=== PATIENT | female | born 1965 | race Caucasian/White ===

== ENCOUNTER 2020-06-13 08:30 | Outpatient (REF) | payer OTHER, SELFPAY ==
[2020-06-13 11:50] LABS: TSH reflex Free T4 3.08 mIU/mL (0.32-4.0)
== END 2020-06-13 08:31 | disposition home or self-care (01) ==
LOC: HO.HMGCLDS 08:30
PROVIDERS: PCP Internal Medicine; Visit Provider Internal Medicine
DX: E03.9 Hypothyroidism, unspecified (principal)
CPT/HCPCS: 84443

== ENCOUNTER 2021-09-01 14:10 | Outpatient (REF) | payer BC, SELFPAY ==
--- NOTE | ~2021-09-01 | MM_ITS ---
EXAMINATION: MM SCREENING DIGITAL BREAST TOMOSYNTHESIS, BILATERAL CLINICAL INFORMATION: Screening. Asymptomatic. The lifetime risk of breast cancer based on the Tyrer-Cuzick Model is 9%. COMPARISON: Mammography: 04/22/2017, 04/08/2015 TECHNIQUE: Digital breast tomosynthesis is performed in both the craniocaudal and mediolateral oblique views along with computer-aided detection (CAD). Synthesized 2D images are generated from the tomosynthesis. Additional left CC view is provided. FINDINGS: There are scattered areas of fibroglandular density (ACR BI-RADS breast composition Category b). There are no significant masses, abnormal calcifications, or other abnormalities. Parenchymal pattern is similar to prior studies. There is no developing density or architectural abnormality. Smooth oval nodular asymmetry retroareolar right breast stable. The axilla and skin contours are unremarkable. No significant changes. MM/MM tomosynthesis screening BI IMPRESSION: There are no significant changes from prior exams. ASSESSMENT: BI-RADS 2: Benign RECOMMENDATION: Routine annual mammography screening. This patient's information was entered into a reminder system with a target due date for their next mammogram.
== END 2021-09-01 14:11 | disposition home or self-care (01) ==
LOC: HO.MAMMO 14:10
PROVIDERS: PCP Internal Medicine; Visit Provider Internal Medicine
DX: Z12.31 Encounter for screening mammogram for malignant neoplasm of breast (principal)
CPT/HCPCS: 77063; 77067

== ENCOUNTER 2021-09-25 12:39 | Outpatient (REF) | payer BC, SELFPAY ==
[2021-09-25 12:51] VITALS: BMI 53.2
[2021-09-25 12:52] VITALS: BP 160/76; PULSE 69; RESP 16; TEMP 36.2; O2SAT 99
== END 2021-09-25 12:40 | disposition home or self-care (01) ==
LOC: HO.MS 12:39
PROVIDERS: PCP Internal Medicine; Visit Provider Ophthalmology
PROC: (CPT 67840; principal; 2021-09-25 13:40)
DX: D23.122 Other benign neoplasm of skin of left lower eyelid, including canthus (principal); D23.121 Other benign neoplasm of skin of left upper eyelid, including canthus; I10 Essential (primary) hypertension; J44.9 Chronic obstructive pulmonary disease, unspecified; E03.9 Hypothyroidism, unspecified; Z87.891 Personal history of nicotine dependence; Z79.51 Long term (current) use of inhaled steroids; Z79.899 Other long term (current) drug therapy
CPT/HCPCS: 67840 ×2; 88305

== ENCOUNTER 2022-03-15 07:34 | Outpatient (REF) | payer BC, SELFPAY ==
[2022-03-15 11:04] LABS: MANUAL DIFF FLAG NO
[2022-03-15 11:13] LABS: Appearance Urine CLOUDY; Basophils Percent Auto 0.4 % (0-2); Color Urine YELLOW; Eosinophils Absolute Auto 0.1 X10*3/uL (0.0-0.4); Eosinophils Percent Auto 1.6 % (0-4); Glucose Urine UA NEG (NEG); Hematocrit 37.6 % (37.0-47.0); Imm Gran Abs Auto 0.04 X10*3/uL (0.00-0.03); Imm Gran Pct Auto 0.5 % (0.0-0.4); Leukocyte Esterase Urine 2+ (NEG); Lymphocytes Absolute Auto 2.8 X10*3/uL (1.2-4.9); Lymphocytes Percent Auto 33.1 % (20-40); Mean Corpuscular HGB Conc 31.9 g/dl (31.0-35.0); Mean Corpuscular Volume 87.9 fL (80.0-98.0); Mean Platelet Volume 8.5 fL (9.4-12.3); Monocytes Absolute Auto 0.6 X10*3/uL (0.1-1.2); Monocytes Percent Auto 7.1 % (2-11); Neutrophils Absolute Auto 4.9 x10*3/uL (2.0-8.3); Neutrophils Percent Auto 57.3 % (45-73); Nitrite Urine POS (NEG); PH 5.5 (5.0-8.0); Platelet Count 251 X10*3/uL (160-400); Red Blood Count 4.28 X10*6/uL (4.20-5.50); Red Cell Distribution Width 14.5 % (11.0-16.0); Specific Gravity - Urine >= 1.030 (1.005-1.025); UACC Culture Trigger YES; Urine Blood 1+ (NEG); Urine Ketones NEG (NEG); Urine Protein NEG (NEG-TRACE); White Blood Count 8.5 X10*3/uL (4.8-10.8)
[2022-03-15 11:43] LABS: Bacteria Urine 4+ /LPF; Calcium Oxalate Crystals Urine 2+ /LPF; Squamous Epithelial Cell Urine 1+ /LPF; WBC Urine 50-75 /HPF (0-4)
[2022-03-15 12:01] LABS: TSH reflex Free T4 2.52 uIU/mL (0.32-4.0)
[2022-03-15 12:17] LABS: Alanine Aminotransferase 12 U/L (0-31); Albumin Level 3.9 g/dL (3.5-5.0); Alkaline Phosphatase 87 U/L (39-117); Anion Gap 11 (12-20); Aspartate Amino Transferase 10 U/L (5-31); Bilirubin Total 0.4 mg/dL (0.0-1.0); Blood Urea Nitrogen 14 mg/dL (9-16); Calcium 9.1 mg/dL (8.4-10.2); Carbon Dioxide 26 mmol/L (22-29); Chloride 106 mmol/L (96-108); Cholesterol 239 mg/dL; Estimated Glomerular Filt Rate > 60; Glucose Fasting 104 mg/dL (60-99); HDL Cholesterol 40 mg/dL; LDL Cholesterol Calculated 158 mg/dl; Potassium 4.3 mmol/L (3.3-5.1); Sodium 139 mmol/L (135-145); Total Protein 6.7 g/dL (6.5-8.0); Triglycerides 208 mg/dL
== END 2022-03-15 07:35 | disposition home or self-care (01) ==
LOC: HO.HMGCLDS 07:34
PROVIDERS: Visit Provider Internal Medicine
DX: Z00.01 Encounter for general adult medical examination with abnormal findings (principal); E03.9 Hypothyroidism, unspecified; E78.9 Disorder of lipoprotein metabolism, unspecified; F41.1 Generalized anxiety disorder; I10 Essential (primary) hypertension; J45.909 Unspecified asthma, uncomplicated; Z91.09 Other allergy status, other than to drugs and biological substances
CPT/HCPCS: 36415; 80053; 80061; 81001; 84443; 85025; 87086; 87088; 87186

== ENCOUNTER 2022-06-13 10:10 | Outpatient (REF) | payer BC, SELFPAY ==
[2022-06-13 11:44] LABS: Estimated Average Glucose 105 mg/dL; Hemoglobin A1c % 5.3 %
[2022-06-13 12:40] LABS: Alanine Aminotransferase 28 U/L (0-31); Albumin Level 4.2 g/dL (3.5-5.0); Alkaline Phosphatase 81 U/L (39-117); Anion Gap 16 (12-20); Aspartate Amino Transferase 19 U/L (5-31); Bilirubin Total 0.5 mg/dL (0.0-1.0); Blood Urea Nitrogen 10 mg/dL (9-16); Calcium 9.7 mg/dL (8.4-10.2); Carbon Dioxide 26 mmol/L (22-29); Chloride 104 mmol/L (96-108); Cholesterol 156 mg/dL; Estimated Glomerular Filt Rate > 60; Glucose Fasting 99 mg/dL (60-99); HDL Cholesterol 41 mg/dL; LDL Cholesterol Calculated 75 mg/dl; Potassium 4.7 mmol/L (3.3-5.1); Sodium 141 mmol/L (135-145); Total Protein 7.1 g/dL (6.5-8.0); Triglycerides 203 mg/dL
== END 2022-06-13 10:11 | disposition home or self-care (01) ==
LOC: HO.HMGCLDS 10:10
PROVIDERS: PCP Internal Medicine; Visit Provider Internal Medicine
DX: E66.01 Morbid (severe) obesity due to excess calories (principal); E78.9 Disorder of lipoprotein metabolism, unspecified; R73.01 Impaired fasting glucose; I10 Essential (primary) hypertension
CPT/HCPCS: 36415; 80053; 80061; 83036

== ENCOUNTER 2022-09-14 14:55 | Outpatient (REF) | payer BC, SELFPAY ==
--- NOTE | ~2022-09-14 | MM_ITS ---
EXAMINATION: MM SCREENING DIGITAL BREAST TOMOSYNTHESIS, BILATERAL CLINICAL INFORMATION: Screening. Asymptomatic. The lifetime risk of breast cancer based on the Tyrer-Cuzick Model is 8%. COMPARISON: Mammography: 09/01/2021, 04/22/2017, 04/08/2015 TECHNIQUE: Digital breast tomosynthesis is performed in both the craniocaudal and mediolateral oblique views along with computer-aided detection (CAD). Synthesized 2D images are generated from the tomosynthesis. FINDINGS: There are scattered areas of fibroglandular density (ACR BI-RADS breast composition Category b). There are no significant masses, abnormal calcifications, or other abnormalities. Parenchymal pattern is similar to prior studies. There is no developing density or architectural abnormality. Again, there is a stable chronic oval right retroareolar nodule. The axilla and skin contours are unremarkable. No significant changes. MM/MM tomosynthesis screening BI IMPRESSION: No mammographic evidence of malignancy. ASSESSMENT: BI-RADS 2: Benign RECOMMENDATION: Routine annual mammography screening. This patient's information was entered into a reminder system with a target due date for their next mammogram.
== END 2022-09-14 14:56 | disposition home or self-care (01) ==
LOC: HO.MAMMO 14:55
PROVIDERS: PCP Internal Medicine; Visit Provider Internal Medicine
DX: Z12.31 Encounter for screening mammogram for malignant neoplasm of breast (principal)
CPT/HCPCS: 77063; 77067

== ENCOUNTER 2022-12-04 13:29 | Outpatient (REF) | payer BC, SELFPAY ==
[2022-12-04 17:06] LABS: MANUAL DIFF FLAG NO
[2022-12-04 17:12] LABS: Basophils Absolute Auto 0.1 X10*3/uL (0.0-0.2); Basophils Percent Auto 0.5 % (0-2); Eosinophils Absolute Auto 0.1 X10*3/uL (0.0-0.4); Eosinophils Percent Auto 1.2 % (0-4); Hematocrit 41.4 % (37.0-47.0); Hemoglobin 13.3 g/dl (12.0-16.0); Imm Gran Abs Auto 0.04 X10*3/uL (0.00-0.03); Imm Gran Pct Auto 0.4 % (0.0-0.4); Lymphocytes Absolute Auto 2.6 X10*3/uL (1.2-4.9); Lymphocytes Percent Auto 26.2 % (20-40); Mean Corpuscular HGB Conc 32.1 g/dl (31.0-35.0); Mean Corpuscular Hemoglobin 28.4 pg (27.0-33.0); Mean Corpuscular Volume 88.3 fL (80.0-98.0); Mean Platelet Volume 8.5 fL (9.4-12.3); Monocytes Absolute Auto 0.7 X10*3/uL (0.1-1.2); Monocytes Percent Auto 6.6 % (2-11); Neutrophils Absolute Auto 6.5 x10*3/uL (2.0-8.3); Neutrophils Percent Auto 65.1 % (45-73); Platelet Count 303 X10*3/uL (160-400); Red Blood Count 4.69 X10*6/uL (4.20-5.50); Red Cell Distribution Width 13.9 % (11.0-16.0)
[2022-12-04 17:30] LABS: Alanine Aminotransferase 13 U/L (0-31); Albumin Level 4.2 g/dL (3.5-5.0); Alkaline Phosphatase 109 U/L (39-117); Anion Gap 12 (12-20); Aspartate Amino Transferase 10 U/L (5-31); Bilirubin Total 0.6 mg/dL (0.0-1.0); Blood Urea Nitrogen 14 mg/dL (9-16); Calcium 9.6 mg/dL (8.4-10.2); Carbon Dioxide 27 mmol/L (22-29); Chloride 105 mmol/L (96-108); Estimated Glomerular Filt Rate 60; Glucose Random 75 mg/dL (60-115); Sodium 139 mmol/L (135-145); Total Protein 7.1 g/dL (6.5-8.0)
[2022-12-04 17:46] LABS: TSH reflex Free T4 5.29 uIU/mL (0.32-4.0)
[2022-12-04 18:19] LABS: Free T4 (Free Thyroxine) 0.99 ng/dL (0.71-1.85)
[2022-12-05 05:25] LABS: Estimated Average Glucose 108 mg/dL; Hemoglobin A1c % 5.4 %
[2022-12-06 02:53] LABS: LDL Cholesterol Direct 95 mg/dL (<100)
== END 2022-12-04 13:30 | disposition home or self-care (01) ==
LOC: HO.HMGCLDS 13:29
PROVIDERS: PCP Internal Medicine; Visit Provider Internal Medicine
DX: E03.9 Hypothyroidism, unspecified (principal); E66.01 Morbid (severe) obesity due to excess calories; E78.9 Disorder of lipoprotein metabolism, unspecified; F41.1 Generalized anxiety disorder; I10 Essential (primary) hypertension; J45.40 Moderate persistent asthma, uncomplicated; R73.01 Impaired fasting glucose; Z91.09 Other allergy status, other than to drugs and biological substances
CPT/HCPCS: 36415; 80053; 83036; 83721; 84439; 84443; 85025

== ENCOUNTER 2023-09-20 15:03 | Outpatient (REF) | payer BC, SELFPAY | END 2023-09-20 15:04 | disposition home or self-care (01) | LOC: HO.MAMMO 15:03 | PROVIDERS: PCP Registered Nurse; Visit Provider Internal Medicine | DX: Z12.31 Encounter for screening mammogram for malignant neoplasm of breast (principal) | CPT/HCPCS: 77063; 77067 ==

== ENCOUNTER → 2023-09-20 15:15 | Outpatient (BNV) | payer BC, SELFPAY | PROVIDERS: PCP Registered Nurse; Visit Provider Radiology Diagnostic Radiology | DX: Z12.31 Encounter for screening mammogram for malignant neoplasm of breast (principal) | CPT/HCPCS: 77063; 77067 ==

== ENCOUNTER 2024-10-14 15:37 | Outpatient (REF) | payer BC, SELFPAY ==
--- OUTSIDE RECORDS SUMMARY | 2024-10-14 15:40 | XMS_ITS ---
Author Organization [facility], [facility] Address [address], [place] [id number] Care Team Providers Care Surgical Coder Name Role Phone BETSY LAWANDA Primary Care Provider ALLERGIES Allergen (clinical drug ingredient) Drug/Non Drug Allergy documented on EMR Reaction Allergy Type Onset Date Status Seasonal (uncoded) Sinus/cold symptoms Allergy Active Bee Sting anaphylaxis Allergy Active clindamycin Clindamycin Increased cardia c enzymes Drug Allergy Active Iodine anaphylaxis Drug Allergy Activ e Penicillin rash Drug Allergy Active Shellfish (FN) Shellfish-derived Products anaphylaxis Drug Allergy Active REASON FOR REFERRAL Reason Please refer to [facility] for nutrition counseling Diagnosis 1 Controlled type 2 di abetes mellitus without complication, without long-term current use of insulin (E11.9) [facility] Referring Provider First Name LAWANDA Referring Provider Last Name BETSY Referring Provider Speciality Nurse Prac titioner Referred Organization [facility], [facility] Referred Address [address], [id number], Referred Provider Specialty Nutrition General Notes PHILLIP JIMENEZAIL 0 11/06/2023 11:37:51 AM >demographics, referral and office note faxed to [facility] [phone] Referral Priority Routine REASON FOR VISIT F/U WEIGHT MEDICATIONS Medication SIG (Take, Route, Frequency, Duration) Notes Start Date End Date Status Symbicort 160-4.5 MCG/ACT 2 puffs Inhalation Twice a day 03/28/2023 Not-Taking Gabapentin 300 MG 1 capsule Orally Three times a day Not-Taking Montelukast Sodium 10 MG 1 tablet Orally Once a day for 30 days 03/28/2023 Not-Taking Levothyroxine Sodium 150 MCG TAKE ONE TABLET BY MOUTH EVERY MORNING ON AN EMPTY STOMACH for 90 Active Mounjaro 2.5 MG/0.5ML 2.5 mg Subcutaneou s once a week for 30 days 03/28/2023 Not-Taking ALPRAZolam 1 MG TAKE ONE TABLET BY MOUTH TWICE A DAY (SPARINGLY) for 15 08/22/2023 Active Breo Ellipta 100-25 MCG/ACT INHALE ONE PUFF INTO THE LUNGS ONCE A DAY for 90 Active Ondansetron HCl 4 MG TAKE ONE TABLET BY MOUTH EVERY DAY NEEDED for 30 Active Diclofenac Sodium 1 % as directed Externally Applies 4g up to 4x/d PRN Active Albuterol Sulfate HFA 108 (90 Base) MCG/ACT 1 puff as needed Inhalation every 4 hrs for 90 days 02/01/2023 Active Lidocaine 5 % 1 patch remove after 12 hours Externally Once a day for 90 days Active Cyclobenzaprine HCl 5 MG 1 tablet every 8 hrs Orally as needed Active Lisinopril 5 MG 1 tablet Orally Once a day Active buPROPion HCl ER (XL) 300 MG 1 tablet in the morning Orally Once a day for 90 days 01/31/2023 Active Citalopram Hydrobromide 40 MG 1 tablet Orally Once a day for 90 days Active Mounjaro 5 MG/0.5ML 5 mg/0.5mL Subcutaneous once per week 06/13/2023 Active Atorvastatin Calcium 80 MG 1 tablet Orally Once a day for 90 days 01/31/2023 Active Albuterol Sulfate 108 (90 Base) MCG/ACT 1 puff as needed Inhalation every 4 hrs for 90 days Active SOCIAL HISTORY Tobacco Use: Social History Observation Description Date Details (start date - stop date) Former Smoker NA - NA Sex Assigned At : Social History Observation Description Sex Assigned At Unknown Tobacco Use/Smoking Question Answer Notes Tobacco use: former smoker How long has it been since y ou last smoked? > 10 years Additional Findings: Tobacco User Modera te cigarette smoker (10-19 cigs/day) Section Notes: Lives in [place], [place] with w su & daughter & pets VITAL SIGNS Height 64 in 10/15/2023 Height-cm 162.56 cm 10/15/2023 Encounters Encounter Location Date Provider Diagnosis [facility], [address] [id number] 10/15/2023 LAWANDA MARQUEZ Controlled type 2 diabetes mellitus without complication, without long-term current use of insulin E11.9 ; Essential (primary) hypertension I10 and Pain in right knee M25.561 ASSESSMENTS Encounter Date Diagnosis Assessment Notes Treatment Notes Treatment Clinical Notes Section Notes 10/15/2023 Controlled type 2 diabetes mellitus without complication, without long-term current use of insulin (ICD-10 - E11.9) Condition is stable and well controlled on current treatment. No changes made, medication(s) refilled as indicated 10/15/2023 Essential (primary) hypertension (ICD-10 - I10) Encouraged DASH diet and regular CV exercise as tolerated 30 min/5 days week. Total time spent with patient 30 minutes which includes pytm-lc-[id number] encounter and coordination of care. 10/15/2023 Pain in right knee (ICD-10 - M25.561) She has now lost enough weight that she is a candidate for knee replacement surgery, will be having cortisone shot and will discuss with ortho when she goes 10/15/2023 Other Total time spen t with patient 32 minutes which includes face to face visit, education and coordination of care. PLAN OF TREATMENT Medication Medication Name Sig Start Date Stop Date Notes Lisinopril 5 MG 1 tablet Orally Once a day Mounjaro 5 MG/0.5ML 5 mg/0.5mL Subcutaneous once per week 06/13/2023 Treatment Notes Assessment Notes Controlled type 2 diabetes m ellitus without complication, without long-term current use of insulin Condition is stable and well controlled on current treatment. No changes made, medication(s) refilled as indicated Essential (primary) hypertension Encouraged DASH diet and regular CV exercise as tolerated 30 min/5 days week. Total time spent with patient 30 minutes which includes ghls-hx-poms encounter and coordination of care. Pain in right knee She has now lost montrell ugh weight that she is a candidate for knee replacement surgery, will be having cortisone shot and will discuss with ortho when she goes Other Total time spent wit h patient 32 minutes which includes face to face visit, education and coordination of care. Referrals Referral Date Details Please refer to [facility] for nutrition counseling , [address] [place] [address], [place], [place], [phone], @[employer], Next Appt Details Follow Up: 3 Months, Reason: f/u meds Progress Notes * MG SANTIAGO:[birth year] (58 yo F)Acc No.[id number]:10/15/2023 Progress Note Patient:??LAWANDA SANTIAGO Provider:??Lawanda FERNANDA Marquez :1965?Age:58 Y?Sex:Fe male Date:10/15/2023 Phone: Address:[address] [place] [address], [id number] Subjective: * Chief Complaints: * ?F/U WEIGHT * HPI: ?Patient Care Team:?Orthopedic:??Dr. Kay @ [facility]? & Dr. Hawk @ [facility].?Surgeon:??Dr Jackelyn LOPEZ.?Visit info:? Lawanda presents for f/u weight management. Has had some GI symptoms, nausea - will take Zofran at least once/week to treat. Is getting some constipation and diarrhea off and on, hasn't grasped control of that yet, otherwise tolerating well. ?Current weight 258lbs. * ROS:?all systems reviewed and are non-contributory unless specified in the HPI. * Medical History:?? * Collar Turner Operator History:?Menstrual history: ?LMP:??Hysterectomy 2010 ?Age of Menarche:??15 ?Last pap smear date??Not recent - Due.?Last mammogram date??08/2022 @ [facility] in [place].?? * OB History:? History:?Total pregnancies:??2 ?Full-term pregnancies:??1 ?AB Spontaneous:??1 * Surgical History:??Hysterect manjinder 2011C-Section 2006Cholecystectomy 1987Bilateral reimplantation of ureters and bladder stretching 1970Wisdom teeth Pulmonary Function Test * Hospitalization/Major Diagno stic Procedure:??Hospitalized for slip & fall x 1wk, then 1 month in [facility] 05/08/2022 * Family History:??Father: dec eased 65 yrs, COPD.??Mother: alive, Hypertension, A- Fib, Hypercholesterolemia.??Paternal Grandfather: , Emphysema.??Paternal Grandmother: , CHF.??Maternal Grandfather: , Diabetes.??Maternal Grandmother: , Breast CA w/mets.??1 daughter(s) - healthy. .?? Maturnal aunts w/A-Fib, Heart disease. * Social History:?Tobacco Use:?Tobacco Use/Smoking?Tobacco use:??former smoker ?How long has it been since you last smoked???> 10 years ?Additional Findings: Tobacco User??Moderate cigarette smoker (10-19 cigs/day) ?Drugs/Alcohol:?Do you smoke marijuana?: Denies. ?Do you drink alcohol?: No - sober since 1991. ?Lives in [place], [place] with & daughter & pets. * Medications:??TakingAtorvast atin Calcium 80 MG Tablet 1 tablet Orally Once a day Albuterol Sulfate 108 (90 Base) MCG/ACT Aerosol Powder Breath Activated 1 puff as needed Inhalation every 4 hrs Citalopram Hydrobromide 40 MG Tablet 1 tablet Orally Once a day Lisinopril 5 MG Tablet 1 tablet Orally Once a day Lidocaine 5 % Patch 1 patch remove after 12 hours Externally Once a day buPROPion HCl ER (XL) 300 MG Tablet Extended Release 24 Hour 1 tablet in the morning Orally Once a day Cyclobenzaprine HCl 5 MG Tablet 1 tablet every 8 hrs Orally as needed Diclofenac Sodium 1 % Gel as directed Externally , Notes to Pharmacist: Applies 4g up to 4x/d PRNAlbuterol Sulfate HFA 108 (90 Base) MCG/ACT Aerosol Solution 1 puff as needed Inhalation every 4 hrs Mounjaro 5 MG/0.5ML Solution Pen-injector 5 mg/0.5mL Subcutaneous once per week Breo Ellipta 100-25 MCG/ACT Aerosol Powder Breath Activated INHALE ONE PUFF INTO THE LUNGS ONCE A DAY ALPRAZolam 1 MG Tablet TAKE ONE TABLET BY MOUTH TWICE A DAY (SPARINGLY) Ondansetron HCl 4 MG Tablet TAKE ONE TABLET BY MOUTH EVERY DAY NEEDED Levothyroxine Sodium 150 MCG Tablet TAKE ONE TABLET BY MOUTH EVERY MORNING ON AN EMPTY STOMACH Taking Atorvastatin Calcium 80 MG Tablet 1 tablet Orally Once a day Taking Albuterol Sulfate 108 (90 Base) MCG/ACT Aerosol Powder Breath Activated 1 puff as needed Inhalation every 4 hrs Taking Citalopram Hydrobromide 40 MG Tablet 1 tablet Orally Once a day Taking Lisinopril 5 MG Tablet 1 tablet Orally Once a day Taking Lidocaine 5 % Patch 1 patch remove after 12 hours Externally Once a day Taking buPROPion HCl ER (XL) 300 MG Tablet Extended Release 24 Hour 1 tablet in the morning Orally Once a day Taking Cyclobenzaprine HCl 5 MG Tablet 1 tablet every 8 hrs Orally as needed Taking Diclofenac Sodium 1 % Gel as directed Externally , Notes to Pharmacist: Applies 4g up to 4x/d PRNTaking Albuterol Sulfate HFA 108 (90 Base) MCG/ACT Aerosol Solution 1 puff as needed Inhalation every 4 hrs Taking Mounjaro 5 MG/0.5ML Solution Pen-injector 5 mg/0.5mL Subcutaneous once per week Taking Breo Ellipta 100-25 MCG/ACT Aerosol Powder Breath Activated INHALE ONE PUFF INTO THE LUNGS ONCE A DAY Taking ALPRAZolam 1 MG Tablet TAKE ONE TABLET BY MOUTH TWICE A DAY (SPARINGLY) Taking Ondansetron HCl 4 MG Tablet TAKE ONE TABLET BY MOUTH EVERY DAY NEEDED Taking Levothyroxine Sodium 150 MCG Tablet TAKE ONE TABLET BY MOUTH EVERY MORNING ON AN EMPTY STOMACH Not-TakingGabapentin 300 MG Capsule 1 capsule Orally Three times a day Symbicort 160-4.5 MCG/ACT Aerosol 2 puffs Inhalation Twice a day Montelukast Sodium 10 MG Tablet 1 tablet Orally Once a day Mounjaro 2.5 MG/0.5ML Solution Pen-injector 2.5 mg Subcutaneous once a week Medication List reviewed and reconciled with the patientNot-Taking Gabapentin 300 MG Capsule 1 capsule Orally Three times a day Not-Taking Symbicort 160-4.5 MCG/ACT Aerosol 2 puffs Inhalation Twice a day Not-Taking Montelukast Sodium 10 MG Tablet 1 tablet Orally Once a day Not-Taking Mounjaro 2.5 MG/0.5ML Solution Pen-injector 2.5 mg Subcutaneous once a week Medication List reviewed and reconciled with the patient * Allergies:??Iodine: anaphyla xis - Allergy - Criticality HighBee Sting: anaphylaxis - Allergy - Criticality HighShellfish-derived Products: anaphylaxis - Allergy - Criticality HighPenicillin: rash - AllergyClindamycin: Increased cardiac enzymes - AllergySeasonal: Sinus/cold symptoms - Allergy Objective: * Vitals:??BP: Not Taken - Tel [facility], Ht: 64 in, Ht-cm: 162.56 cm. * Physical Examination:?GEN: NAD, speaking in full complete sentences, thoughts clear and appropriate ?RESP: nonlabored breathing, no audible SOB/Wheezing ?NEURO: AO x 3 ?PSYCH: judgment/insight intact, NL mood/affect. Assessment: * Assessment: 1.??Controlled type 2 diabet es mellitus without complication, without long-term current use of insulin - E11.9 (Primary)??2.??Essential (primary) hypertension - I10??3.??Pain in right knee - M25.561?? Plan: * Treatment: 2.??Essential (primary) hype rtension?? Continue Lisinopril Tablet, 5 MG, 1 tablet, Orally, Once a day.? Notes: Encouraged DASH diet and regular CV exercise as tolerated 30 min/5 days week. Total time spent with patient 30 minutes which includes ahuw-ik-vcaq encounter and coordination of care.? 3.??Pain in right knee?? Notes: She has now lost enough weight that she is a candidate for knee replacement surgery, will be having cortisone shot and will discuss with ortho when she goes? 4.??Others?? Notes: Total time spent with patient 32 minutes which includes face to face visit, education and coordination of care.? * Procedure Codes:?? * Preventive Medicine:?Last CPE: 16yrs ago ?DEXA: No ?Colonoscopy: Yes, 2013 - polyps - overdue for repeat w/Dr. Garcia in [place] ?Endoscopy: No ?Covid Vac: Yes & 2 boosters ?Flu Vac: Yes ?PV: Yes. * Follow Up:??3 Months (Reason : f/u meds) * Billing Information: * Visit Code:?? 16698 Office Visit, Est Pt., Level 4. * Procedure Codes:?? * Sign off status: Completed true * Provider:??Lawanda Marquez DNP Date:??0 10/15/2023 History and Physical Notes * HPI (History of Present Illness) Category Sub-Category Detail Notes Category Not es Patient Care Team Surgeon: Dr Jackelyn LOPEZ Orthopedic: Dr. Kay @ [facility] & Dr. Hawk @ [facility] Visit info Lawanda presents for f/u weight management. Has had some GI symptoms, nausea - will take Zofran at least once/week to treat. Is getting some constipation and diarrhea off and on, hasn't grasped control of that yet, otherwise tolerating well. Current weight 258lbs. Physical Examination Category Sub-Category Detail Notes Section Note s GEN: NAD, speaking in full complete sentences, thoughts clear and appropriate RESP: nonlabored breathing, no audible SOB/Wheezing NEURO: AO x 3 PSYCH: judgment/insight intact, NL mood/affect Consultation Request Notes Referral Date Referring Provider Referred Provider Not es 10/15/2023 LAWANDA MARQUEZ , Please refe r to [facility] for nutrition counseling
--- OUTSIDE RECORDS SUMMARY | 2024-10-14 15:40 | XMS_ITS | Patient Health Record ---
Author Organization [facility], [facility] Address [address] [place], [place] [phone] Care Team Providers Care Crosscutter Rolled Glass Name Role Phone BETSY LAWANDA Primary Care Provider [phone] ALLERGIES Allergen (clinical drug ingredient) Drug/Non Drug [...] current use of insulin (E11.9) [facility] Referring Provider First Name LAWANDA Referring Provider Last Name BETSY Referring Provider Speciality Nurse Prac titioner Referred Organization [facility], [facility] Referred Address [address], [id number], Referred Provider Specialty Nutrition General Notes YELENA JIMENEZ 0 11/06/2023 11:37:51 AM >demographics, referral and office note faxed to [facility] [phone] Referral Priority Routine MEDICATIONS Medication SIG (Take, Route, Frequency, Duration) Notes Start Date End Date Status Citalopram Hydrobromide 40 MG TAKE ONE TABLET BY MOUTH EVERY DAY for 90 Active Lidocaine 5 % 1 patch remove after 12 hours Externally Once a day for 90 days Active Symbicort 160-4.5 MCG/ACT 2 puffs Inhalation Twice a day 03/28/2023 Not-Taking Gabapentin 300 MG 1 capsule Orally Three times a day Not-Taking Mounjaro 5 MG/0.5ML INJECT 5MG (0.5ML) SUBCUTANEOUSLY ONCE A WEEK for 84 Active Cyclobenzaprine HCl 5 MG 1 tablet every 8 hrs Orally as needed Active Montelukast Sodium 10 MG 1 tablet Orally Once a day for 30 days 03/28/2023 Not-Taking Levothyroxine Sodium 150 MCG TAKE ONE TABLET BY MOUTH EVERY MORNING ON AN EMPTY STOMACH for 90 Active Mounjaro 10 MG/0.5ML 10 mg Subcutaneous once per week for 90 days 12/23/2023 Active ALPRAZolam 1 MG TAKE ONE TABLET BY MOUTH TWICE A DAY (SPARINGLY) Orally Twice a day for 30 days 01/06/2024 Active Atorvastatin Calcium 80 MG TAKE ONE TABLET BY MOUTH EVERY DAY for 90 Active Lisinopril 5 MG TAKE ONE TABLET BY MOUTH EVERY DAY for 90 Active buPROPion HCl ER (XL) 300 MG TAKE ONE TABLET BY MOUTH EVERY MORNING for 90 Active Ondansetron HCl 4 MG TAKE ONE TABLET BY MOUTH EVERY DAY NEEDED Orally Once a day for 90 days Active Albuterol Sulfate 108 (90 Base) MCG/ACT 1 puff as needed Inhalation every 4 hrs for 90 days Active Diclofenac Sodium 1 % as directed Externally Applies 4g up to 4x/d PRN Active Mounjaro 2.5 MG/0.5ML 2.5 mg Subcutaneou s once a week for 30 days 03/28/2023 Not-Taking Breo Ellipta 100-25 MCG/ACT INHALE ONE PUFF INTO THE LUNGS ONCE A DAY Inhalation Once a day for 90 days Active Albuterol Sulfate HFA 108 (90 Base) MCG/ACT 1 puff as needed Inhalation every 4 hrs for 90 days 02/01/2023 Active SOCIAL HISTORY Tobacco Use: Social History [...] smoker (10-19 cigs/day) Section Notes: Lives in [place], [place] with w su & daughter & pets Lives in [place] with w su & daughter & pets Lives in [place] with w su & daughter & pets Lives in [place] with w su & daughter & pets [place] su & daughter & pets [place] w su & daughter & pets Lives in [place] with w su & daughter & pets Lives in [place] with w su & daughter & pets Lives in [place] with w su & daughter & pets Lives in [place] with w su & daughter & pets PROBLEMS Problem Type ICD Code Onset Dates Problem Status W/U Status Risk SNOMED Code Notes Problem Essential (primary) hypertension (I10) Active confirmed Essential hypertension (73957329) Problem Cough variant asthma (J45.991) Active confirmed Cough variant a sthma (906964845) Problem Pain in right knee (M25.561) Active confirmed Pain of right k nee region (finding) (452409430898364) Problem Panic disorder [episodic paroxysmal anxiety] (F41.0) Active confirmed Panic disor mannie (613700486) Problem Hypercholesteremia (E78.00) Active confirmed hypercholestero lemia (disorder) (45940102) Problem Controlled type 2 diabetes mellitus without complication, without long-term current use of insulin (E11.9) Active confirmed Type II diab etes mellitus without complication (081286771) Problem Morbid obesity (E66.01) Active confirmed Morbid obesity (610166154) Problem Hypothyroidism (acquired) (E03.9) Active confirmed Hypothyro idism (95113359) VITAL SIGNS Height-cm 162.56 cm 10/15/2023 Height 64 in 10/15/2023 Encounters Encounter Location Date Provider Diagnosis [address] [id number] 10/15/2023 LAWANDA MEYER Controlled type 2 diabetes mellitus without complication, without long-term current use of insulin E11.9 ; Essential (primary) hypertension I10 and Pain in right knee M25.[address] [id number] 12/16/2023 LAWANDA MEYER ASSESSMENTS Encounter Date Diagnosis Assessment Notes Treatment Notes Treatment Clinical Notes Section Notes 10/15/2023 Essential (primary) hypertension (ICD-10 - I10) Encouraged DASH diet and regular CV exercise as tolerated 30 min/5 days week. Total time spent with patient 30 minutes which includes drot-fx-kbjt encounter and coordination of care. 10/15/2023 Controlled type 2 diabetes mellitus without complication, without long-term current use of insulin (ICD-10 - E11.9) Condition is stable and well controlled on current treatment. No changes made, medication(s) refilled as indicated 10/15/2023 Pain in right knee (ICD-10 - M25.561) She has now lost enough weight that she is a candidate for knee replacement surgery, will be having cortisone shot and will discuss with ortho when she goes 10/15/2023 Other Total time spen t with patient 32 minutes which includes face to face visit, education and coordination of care. PLAN OF TREATMENT Pending Test Test Name Order Date DEXA Hip and Spine 01/31/2023 Insurance Providers Payer Name Payer Address Payer Phone Subscriber Number Group Number Insured Name Patient Relationship to Insured Coverage Start Date Coverage End Date [facility] [address] [place] [phone] [id number] LAWANDA SANTIAGO Self - patient is the insured MEDICAL (GENERAL) HISTORY Medical History History ICD Code Anxiety Asthma Depression Cholecystectomy Endometriosis Uterine Fibroid Hypertension Hypercholesterolemia Eczema Sleep Apnea - Has CPAP Surgical History Surgery Date(Month/Year) Hysterectomy 2011 2005 Cholecystectomy 1986 Bilateral reimplantation of ureters and bladder stretching 1970 [place] teeth Pulmonary Function Test Hospitalization History Reason Date(Month/Year) Hospitalized for slip & fall x 1wk, then 1 month in [facility] 05/08/2022
--- OUTSIDE RECORDS SUMMARY | 2024-10-14 15:41 | XMS_ITS | Clinical Summary ---
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 Role Phone Kusum Tobar Primary Care Provider [phone] Social History Tobacco Use Types Packs/Day Years Used Date Smoking Tobacco: Never Assessed Comments Unknown Sex and Gender Information Value Date Recorded Sex Assigned at Not on file Legal Sex Female 3:35 AM EST Gender Identity Not on file Sexual Orientation Not on file Plan of Treatment Health Maintenance Due Date Last Done Comments Breast Cancer Screening 1965 DTaP,Tdap,and Td Vaccines (1 - Tdap) 1986 Hepatitis B Vaccines (1 of 3 - 19+ 3-dose series) 1986 Cervical Cancer Screening: P ap Smear 01/16/1988 Pneumococcal Vaccine: 50+ Ye ars (1 of 1 - PCV) 2017 Zoster Vaccines (1 of 2) 2017 Colorectal Cancer Screening: Colonoscopy 07/29/2022 Depression Screening 07/29/2022 HIV Screening 07/29/2022 Hepatitis C Screening 07/29/2022 Social Influencers of Health Screening 07/29/2022 COVID-19 Vaccine (2023-2 5 season) 2024 Influenza Vaccine (#1) 2024 HIB Vaccines Aged Out No longer eligi ble based on patient's age to complete this topic HPV Vaccines Aged Out No longer eligi ble based on patient's age to complete this topic Hepatitis A Vaccines Aged Out No long er eligible based on patient's age to complete this topic IPV Vaccines Aged Out No longer eligi ble based on patient's age to complete this topic MMR Vaccines Aged Out No longer eligi ble based on patient's age to complete this topic Meningococcal ACWY Vaccine Aged Out N o longer eligible based on patient's age to complete this topic Meningococcal B Vacine Aged Out No lo nger eligible based on patient's age to complete this topic Pneumococcal Vaccine: Pediat rics (0 to 5 Years) and At-Risk Patients (6 to 64 Years) Aged Out No longer eligible b ased on patient's age to complete this topic RSV Immunization Patients Un mannie 20 months Aged Out No longer eligible b ased on patient's age to complete this topic Varicella Vaccines Aged Out No longer eligible based on patient's age to complete this topic Care Teams Elementary Vocal Music Teacher Relationship Specialty Start Date End Date Kusum Tobar [address] [place] [phone] PCP - General Family Medicine 06/19/24
--- OUTSIDE RECORDS SUMMARY | 2024-10-14 15:41 | XMS_ITS ---
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
--- OUTSIDE RECORDS SUMMARY | 2024-10-14 15:41 | XMS_ITS ---
Author Organization [facility], [facility] Address [address] [place] [phone] Care Team Providers Care Peer Financial Counselor Name Role Phone LAWANDA MEYER Primary Care Provider REASON FOR VISIT Refill - Mounjaro MEDICATIONS Medication SIG (Take, Route, Fr equency, Duration) Notes Start Date End Date Status Mounjaro 10 MG/0.5ML 10 mg Subcutaneous once per week for 90 days 12/23/2023 Active Encounters Encounter Location Date Provider Diagnosis [facility], [address] [phone] 12/16/2023 LAWANDA MEYER PLAN OF TREATMENT Medication Medication Name Sig Start Date Stop Date Notes Mounjaro 10 MG/0.5ML 10 mg Subcutaneous once per week for 90 days 12/23/2023 Progress Notes * LAWANDA SANTIAGODOB:[birth year] (58 yo F)Acc No.[id number]:12/16/2023 Patient:??LAWANDA SANTIAGO :1965?Age:58 Y?Sex:Fe male Phone: Address:[address] [place] [phone] * Refills?? Start Mounjaro Solution Pen-injector, 10 MG/0.5ML, Subcutaneous, 12, 10 mg, once per week, 90 days, Refills=3 * true * Date:??
== END 2024-10-14 15:38 | disposition home or self-care (01) ==
LOC: HO.MAMMO 15:37
PROVIDERS: PCP Registered Nurse; Visit Provider Registered Nurse
DX: Z12.31 Encounter for screening mammogram for malignant neoplasm of breast (principal)
CPT/HCPCS: 77063; 77067

== ENCOUNTER → 2024-10-14 15:45 | Outpatient (BNV) | payer BC, SELFPAY | PROVIDERS: PCP Registered Nurse; Visit Provider Internal Medicine | DX: Z12.31 Encounter for screening mammogram for malignant neoplasm of breast (principal) | CPT/HCPCS: 77063; 77067 ==